=== PATIENT | female | born 1925 | race Caucasian/White ===

== ENCOUNTER 2017-06-19 12:42 | Emergency (ER) | payer MEDICARE, BC ==
--- NOTE | 2017-06-19 12:58 | EDM.PDOC ---
ED HPI GENERAL MEDICAL PROBLEM - General Chief Complaint: Neuro Symptoms/Deficits Stated Complaint: [facility] Time Seen by Provider: 06/19/17 12:44 Source of Information: Reports: Patient History Limitations: Reports: No Limitations - History of Present Illness INITIAL COMMENTS - FREE TEXT/NARRATIVE: 89-year-old female is brought in by [facility] for evaluation treatment following a responsive episode. Reportedly the patient was at a family members house outside. She became unresponsive. She had a pulse during the entire event and was breathing per a family member who is a nurse. This lasted approximately a few seconds to a few minutes. They brought her inside. She then explained that she had did go to the bathroom and got up on her wound volition went to the bathroom. She did have a loose diarrhea-like stool. She did not fall over at all during this episode. No head trauma. Shortly after this all occurred no known is called she is brought to the ER. Blood sugar on arrival was 130s. Patient is resting comfortably upon arrival the ED. She denies any headedness, dizziness, headache, nausea, vomiting , abdominal pain, chest pain or any shortness of breath. Patient denies any recent illness. She reports other than the one episode of looser stools prior to arrival she has not had any diarrhea. Patient reports she is only on medications for blood pressure but does not recall these. She is not on any blood thinners. Onset: Today - Related Data Allergies Allergy/AdvReac Type Severity Reaction Status Date / Time aspirin Allergy Itching Verified 06/19/17 16:16 Penicillins Allergy Itching Verified 06/19/17 16:16 Home Meds: Home Meds Lisinopril [Prinivil] 10 mg PO BID 02/13/16 [History] amLODIPine [Norvasc] 5 mg PO BEDTIME 02/13/16 [History] Hydrochlorothiazide 12.5 mg PO DAILY 06/19/17 [History] Metoprolol Succinate [Toprol Xl] 25 mg PO DAILY 06/19/17 [History] Pantoprazole Sodium 40 mg PO BID 06/19/17 [History] Past Medical History Cardiovascular History: Reports: Hypertension Other Cardiovascular History: chest pain Gastrointestinal History: Reports: Cholelithiasis Genitourinary History: Reports: Renal Disease Other Genitourinary History: chronic renal disease Musculoskeletal History: Reports: Osteoarthritis Other Hematologic History: hyponatremia - Past Surgical History GI Surgical History: Reports: Cholecystectomy Female Surgical History: Reports: Hysterectomy Social & Family History - Caffeine Use Caffeine Use: Reports: None ED ROS GENERAL - Review of Systems Review Of Systems: See Below HEENT: Denies: Vision Change Respiratory: Denies: Shortness of Breath Cardiovascular: Denies: Chest Pain GI/Abdominal: Denies: Abdominal Pain, Nausea, Vomiting : Reports: No Symptoms Neurological: Reports: Other (unresponsive episode). Denies: Headache, Numbness , Syncope, Tingling ED EXAM, NEURO - Physical Exam Exam: See Below Exam Limited By: No Limitations General Appearance: Alert, WD/WN, No Apparent Distress, Thin Eye Exam: Bilateral Eye: EOMI, Normal Inspection, PERRL Ears: Normal External Exam Nose: Normal Inspection Throat/Mouth: Normal Inspection, Normal Lips, Normal Voice, No Airway Compromise Head Exam: Atraumatic, Normocephalic Neck: Normal Inspection, Supple, Non-Tender, Full Range of Motion. 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 Right atrial hypertrophy. Early "R" wave transition - consider septal hypertrophy. Q wave AVL - non specific. QT is mildly prolonged for rate. Reviewed by myself and Dr. Daniel. Course - Vital Signs Last Recorded V/S: Last Vital Signs Temp 36.4 C 05/13/18 12:47 Pulse 66 06/19/17 16:10 Resp 18 06/19/17 16:10 BP 156/74 H 06/19/17 16:10 Pulse Ox 100 06/19/17 16:10 - Orders/Labs/Meds Orders: Active Orders 24 hr Category Date Time Status Cardiac Monitoring [RC] . DIRECTED Care 06/19/17 12:56 Active EKG 12 Lead [EKG Documentation Completion] [RC] STAT Care 06/19/17 12:56 Active Orthostatic Vital Signs [RC] ASDIRECTED Care 06/19/17 12:56 Active Peripheral IV Care [RC] . DIRECTED Care 06/19/17 12:57 Active Chest 1V Frontal [CR] Stat Exams 06/19/17 12:56 Taken UA W/MICROSCOPIC [URIN] Stat Lab 06/19/17 15:45 Ordered Peripheral IV Insertion Adult [OM.PC] Routine Oth 06/19/17 12:56 Ordered Labs: Laboratory Tests 06/19/17 06/19/17 06/19/17 Range/Units 12:51 12:51 12:51 WBC 5.44 (3.98-10.04) K/mm3 RBC 3.76 L (3.98-5.22) M/mm3 Hgb 11.0 L (11.2-15.7) gm/L Hct 33.4 L (34.1-44.9) % MCV 88.8 (79.4-94.8) fl MCH 29.3 (25.6-32.2) pg MCHC 32.9 (32.2-35.5) g/dl RDW Std Deviation 44.5 (36.4-46.3) fL Plt Count 238 (182-369) K/mm3 MPV 9.7 (9.4-12.3) fl Neut % (Auto) 58.7 (34.0-71.1) % Lymph % (Auto) 30.7 (19.3-51.7) % [place] % (Auto) 8.5 (4.7-12.5) % Eos % (Auto) 1.1 (0.7-5.8) Baso % (Auto) 0.6 (0.1-1.2) % Neut # (Auto) 3.20 (1.56-6.13) K/mm3 Lymph # (Auto) 1.67 (1.18-3.74) K/mm3 [place] # (Auto) 0.46 H (0.24-0.36) K/mm3 Eos # (Auto) 0.06 (0.04-0.36) K/mm3 Baso # (Auto) 0.03 (0.01-0.08) K/mm3 D-Dimer, Quantitative 0.61 H (0.19-0.50) mg/L Sodium 134 L (136-145) mEq/L Potassium 4.7 (3.5-5.1) mEq/L Chloride 101 (98-107) mEq/L Carbon Dioxide 22 (21-32) mEq/L Anion Gap 15.7 H (5-15) BUN 36 H (7-18) mg/dL Creatinine 1.8 H (0.55-1.02) mg/dL Est Cr Clr Drug Dosing TNP Estimated GFR (MDRD) 26 (>60) mL/min BUN/Creatinine Ratio 20.0 H (14-18) Glucose 160 H (83-115) mg/dL Calcium 8.5 (8.5-10.1) mg/dL Total Bilirubin 0.3 (0.2-1.0) mg/dL AST 20 (15-37) U/L ALT 22 (14-59) U/L Alkaline Phosphatase 52 (46-116) U/L Troponin I < 0.017 (0.00-0.056) ng/mL NT-Pro-B Natriuret Pep (0-450) pg/mL Total Protein 6.9 (6.4-8.2) g/dl Albumin 3.6 (3.4-5.0) g/dl Globulin 3.3 gm/dL Albumin/Globulin Ratio 1.1 (1-2) Urine Color (Yellow) Urine Appearance (Clear) Urine pH (5.0-8.0) Ur Specific [place] (1.005-1.030) Urine Protein (Negative) Urine Glucose (UA) (Negative) Urine Ketones (Negative) Urine Occult Blood (Negative) Urine Nitrite (Negative) Urine Bilirubin (Negative) Urine Urobilinogen (0.2-1.0) Ur Leukocyte Esterase (Negative) Urine RBC (0-5) /hpf Urine WBC (0-5) /hpf Ur Epithelial Cells (0-5) /hpf Urine Bacteria (FEW) /hpf Urine Mucus (FEW) /hpf 06/19/17 06/19/17 06/19/17 Range/Units 12:51 15:10 15:45 WBC (3.98-10.04) K/mm3 RBC (3.98-5.22) M/mm3 Hgb (11.2-15.7) gm/L Hct (34.1-44.9) % MCV (79.4-94.8) fl MCH (25.6-32.2) pg MCHC (32.2-35.5) g/dl RDW Std Deviation (36.4-46.3) fL Plt Count (182-369) K/mm3 MPV (9.4-12.3) fl Neut % (Auto) (34.0-71.1) % Lymph % (Auto) (19.3-51.7) % [place] % (Auto) (4.7-12.5) % Eos % (Auto) (0.7-5.8) Baso % (Auto) (0.1-1.2) % Neut # (Auto) (1.56-6.13) K/mm3 Lymph # (Auto) (1.18-3.74) K/mm3 [place] # (Auto) (0.24-0.36) K/mm3 Eos # (Auto) (0.04-0.36) K/mm3 Baso # (Auto) (0.01-0.08) K/mm3 D-Dimer, Quantitative (0.19-0.50) mg/L Sodium (136-145) mEq/L Potassium (3.5-5.1) mEq/L Chloride (98-107) mEq/L Carbon Dioxide (21-32) mEq/L Anion Gap (5-15) BUN (7-18) mg/dL Creatinine (0.55-1.02) mg/dL Est Cr Clr Drug Dosing Estimated GFR (MDRD) (>60) mL/min BUN/Creatinine Ratio (14-18) Glucose (83-115) mg/dL Calcium (8.5-10.1) mg/dL Total Bilirubin (0.2-1.0) mg/dL AST (15-37) U/L ALT (14-59) U/L Alkaline Phosphatase (46-116) U/L Troponin I < 0.017 (0.00-0.056) ng/mL NT-Pro-B Natriuret Pep 299 (0-450) pg/mL Total Protein (6.4-8.2) g/dl Albumin (3.4-5.0) g/dl Globulin gm/dL Albumin/Globulin Ratio (1-2) Urine Color Yellow (Yellow) Urine Appearance Clear (Clear) Urine pH 6.5 (5.0-8.0) Ur Specific [place] 1.015 (1.005-1.030) Urine Protein Trace H (Negative) Urine Glucose (UA) Negative (Negative) Urine Ketones Negative (Negative) Urine Occult Blood Negative (Negative) Urine Nitrite Negative (Negative) Urine Bilirubin Negative (Negative) Urine Urobilinogen 0.2 (0.2-1.0) Ur Leukocyte Esterase 2+ H (Negative) Urine RBC 0-5 (0-5) /hpf Urine WBC 30-40 H (0-5) /hpf Ur Epithelial Cells 5-10 H (0-5) /hpf Urine Bacteria Moderate H (FEW) /hpf Urine Mucus Not seen (FEW) /hpf Meds: Medications Discontinued Medications Generic Name Dose Route Start Last Admin Trade Name Freq PRN Reason Stop Dose Admin Sodium Chloride 250 mls @ 250 mls/hr 06/19/17 12:59 06/19/17 13:04 Normal Saline IV 06/19/17 13:58 250 mls/hr .BOLUS ONE Administration Sodium Chloride 250 mls @ 250 mls/hr 06/19/17 14:24 06/19/17 14:37 Normal Saline IV 06/19/17 15:23 250 mls/hr ONETIME ONE Administration Sodium Chloride 10 ml 06/19/17 12:56 06/19/17 13:05 Saline Flush FLUSH 10 ml ASDIRECTED PRN Administration Keep Vein Open - Radiology Interpretation Free Text/Narrative:: Chest: Portable view of the chest was obtained. Comparison: Prior chest x-ray of 03/17/16. Heart size and mediastinum are within normal limits for portable technique. Increased density is noted within both upper lungs compatible with degenerative spurring within the costochondral junction of the first ribs. Lungs show no acute parenchymal densities. Degenerative change is noted within the spine with scoliosis. Degenerative change is also noted within both shoulders. Bony structures are osteopenic. Impression: 1. Incidental findings. 2. Nothing acute is appreciated on portable chest x-ray. Head CT Technique: Multiple axial sections through the brain were obtained. Intravenous contrast was not utilized. Comparison: No prior intracranial imaging. Findings: Ventricles along with basal cisterns and sulci over the convexities are mildly prominent. Minimal diminished density is noted within the periventricular white matter compatible with small vessel ischemic demyelination change. No other abnormal parenchymal densities are seen. No evidence of intracranial hemorrhage. No midline shift or mass effect is seen. Bone window settings were reviewed which shows the visualized sinuses to appear clear. Mild atherosclerotic calcification is seen within the carotid siphon. No acute calvarial abnormality is seen. Impression: 1. Minimal senescent change as noted above. 2. No acute intracranial abnormality is identified. - Re-Assessments/Exams Free Text/Narrative Re-Assessment/Exam: 06/19/17 14:13 Patient's family has arrived. They informed me that she was sitting outside when she had this blank stare. Lasted only a few seconds. They then brought her inside and she would not respond to verbal prompting. This lasted what sounds to be a couple of minutes. [place] was called. She then came to acknowledge that there were several people around her (in reference to emergency response staff). She then explained that she had to go to the bathroom and got up on her own volition and walked to the bathroom or she had a diarrhea-like stool. Ambulance found her in the bathroom and then brought her into the ER. Daughter reports that this did occur on one other occasion. States at one [place] the mall and had a very similar episode. She was taken to the hospital and found to be slightly dehydrated. She was given some fluids and discharged home and did well. Patient continues to deny any pain or problems at this time. 06/19/17 15:14 The patient's d-dimer did come back elevated for lab standards at 0.61. However , patient is under her age corrected threshold at less than 0.89. The probability of a PE is felt to be low therefore, I decided against CT angiogram at this time. Patient continues to do well and is resting comfortably. Plans to repeat her troponin undetectable will send her home. I will have her stop her metoprolol as her heart rate has been in the 50s and 60s during her ER stay. Feels is likely a combination of mild dehydration and bradycardia causing her episode today. Awaiting urine sample at this time. 06/19/17 15:34 Urine is 2+ leukocytes but no nitrates. [place] unlikely to have a urinary tract infection. The patient is anxious to go home at this time. She would like to go home and spend Mother's Day with her family. No reason to keep her in the hospital and will discharge her home. Discharge instructions as documented. I will have the patient stop her metoprolol as her heart rate has been a 50s to 60s. I feel the today was a combination of mild dehydration and bradycardia causing the unresponsive episode. Departure - Departure Time of Disposition: 16:00 Disposition: Home, Self-Care 01 Condition: Good Clinical Impression: Dehydration, mild, Bradycardia - Discharge Information Instructions: Dehydration, Adult, [id number] Referrals: Andreas Veras MD [Primary Care Provider] - Forms: ED Department Discharge Additional Instructions: Stop the metoprolol. Make sure you're drinking plenty of fluids. Drink water, Gatorade or Powerade. Follow-up with your primary care provider in 1-2 weeks for a recheck of your symptoms. Please return to the ER if your symptoms change or worsen. - My Orders Last 24 Hours: My Active Orders 06/19/17 12:56 Cardiac Monitoring [RC] . DIRECTED EKG 12 Lead [EKG Documentation Completion] [RC] STAT Orthostatic Vital Signs [RC] ASDIRECTED Chest 1V Frontal [CR] Stat Peripheral IV Insertion Adult [OM.PC] Routine 06/19/17 12:57 Peripheral IV Care [RC] . DIRECTED 06/19/17 15:45 UA W/MICROSCOPIC [URIN] Stat - Assessment/Plan Last 24 Hours: My Active Orders 06/19/17 12:56 Cardiac Monitoring [RC] . DIRECTED EKG 12 Lead [EKG Documentation Completion] [RC] STAT Orthostatic Vital Signs [RC] ASDIRECTED Chest 1V Frontal [CR] Stat Peripheral IV Insertion Adult [OM.PC] Routine 06/19/17 12:57 Peripheral IV Care [RC] . DIRECTED 06/19/17 15:45 UA W/MICROSCOPIC [URIN] Stat
[2017-06-19] MEDS: Sodium Chloride 0.9% 10 ML Syringe FLUSH PRN ×2 (12:59→13:05)
[2017-06-19] MEDS ORDERED: Sodium Chloride 0.9% 250 ML IV ONE ×2 (12:59→14:24)
--- NOTE | 2017-06-19 13:02 | EDM.PDOC ---
ED HPI GENERAL MEDICAL PROBLEM - General Chief Complaint: Neuro Symptoms/Deficits Stated Complaint: [facility] Time Seen by Provider: 06/19/17 13:02 Source of Information: Reports: Patient History Limitations: Reports: No Limitations - Related Data Allergies Allergy/AdvReac Type Severity Reaction Status Date / Time aspirin Allergy Itching Verified 03/17/16 15:07 Penicillins Allergy Itching Verified 06/19/17 12:47 Home Meds: Home Meds Lisinopril [Prinivil] 10 mg PO DAILY 02/13/16 [History] amLODIPine [Norvasc] 5 mg PO BEDTIME 02/13/16 [History] Ranitidine [Zantac] 150 mg PO BID PRN 03/08/16 [History] Acetaminophen with Codeine [Tylenol with Codeine #3 Tablet] 1 each PO Q6H PRN # 15 tablet 03/09/16 [Rx] Past Medical History Cardiovascular History: Reports: Hypertension Other Cardiovascular History: chest pain Gastrointestinal History: Reports: Cholelithiasis Genitourinary History: Reports: Renal Disease Other Genitourinary History: chronic renal disease Musculoskeletal History: Reports: Osteoarthritis Other Hematologic History: hyponatremia - Past Surgical History GI Surgical History: Reports: Cholecystectomy Female Surgical History: Reports: Hysterectomy Social & Family History - Caffeine Use Caffeine Use: Reports: None Course - Vital Signs Last Recorded V/S: Last Vital Signs Temp 36.4 C 06/19/17 12:47 Pulse 64 06/19/17 12:47 Resp 18 06/19/17 12:47 BP 152/51 H 06/19/17 12:47 Pulse Ox 97 06/19/17 12:47 - Orders/Labs/Meds Orders: Active Orders 24 hr Category Date Time Status Cardiac Monitoring [RC] . DIRECTED Care 06/19/17 12:56 Active EKG 12 Lead [EKG Documentation Completion] [RC] STAT Care 06/19/17 12:56 Active Orthostatic Vital Signs [RC] ASDIRECTED Care 06/19/17 12:56 Active Peripheral IV Care [RC] . DIRECTED Care 06/19/17 12:57 Active Chest 1V Frontal [CR] Stat Exams 06/19/17 12:56 Ordered Head wo Cont [CT] Stat Exams 06/19/17 12:56 Ordered CBC WITH AUTO DIFF [HEME] Stat Lab 06/19/17 12:56 Ordered COMPREHENSIVE METABOLIC PN,CMP [CHEM] Stat Lab 06/19/17 12:56 Ordered D Dimer [D-DIMER QUANTITATIVE] [COAG] Stat Lab 06/19/17 12:58 Ordered PRO B-TYPE NATRIUR PEPT,BNPPRO [CHEM] Stat Lab 06/19/17 12:59 Ordered TROPONIN I [CHEM] Stat Lab 06/19/17 12:56 Ordered UA W/MICROSCOPIC [URIN] Stat Lab 06/19/17 12:56 Ordered Sodium Chloride 0.9% [Normal Saline] 250 ml Med 06/19/17 12:59 Ordered IV .BOLUS Sodium Chloride 0.9% [Saline Flush] Med 06/19/17 12:56 Ordered 10 ml FLUSH ASDIRECTED PRN Peripheral IV Insertion Adult [OM.PC] Routine Oth 06/19/17 12:56 Ordered Medication Orders Sodium Chloride (Normal Saline) 250 mls @ 250 mls/hr IV .BOLUS ONE Stop: 06/19/17 13:58 Sodium Chloride (Saline Flush) 10 ml FLUSH ASDIRECTED PRN PRN Reason: Keep Vein Open Last Admin: 06/19/17 12:59 Dose: 10 ml Meds: Medications Generic Name Dose Route Start Last Admin Trade Name Freq PRN Reason Stop Dose Admin Sodium Chloride 250 mls @ 250 mls/hr 06/19/17 12:59 Normal Saline IV 06/19/17 13:58 .BOLUS ONE Sodium Chloride 10 ml 06/19/17 12:56 06/19/17 12:59 Saline Flush FLUSH 10 ml ASDIRECTED PRN Administration Keep Vein Open Departure - Discharge Information Referrals: Andreas Veras MD [Primary Care Provider] - Forms: ED Department Discharge - My Orders Last 24 Hours: My Active Orders 06/19/17 12:56 Cardiac Monitoring [RC] . DIRECTED EKG 12 Lead [EKG Documentation Completion] [RC] STAT Orthostatic Vital Signs [RC] ASDIRECTED Chest 1V Frontal [CR] Stat Head wo Cont [CT] Stat CBC WITH AUTO DIFF [HEME] Stat COMPREHENSIVE METABOLIC PN,CMP [CHEM] Stat TROPONIN I [CHEM] Stat UA W/MICROSCOPIC [URIN] Stat Sodium Chloride 0.9% [Saline Flush] 10 ml FLUSH ASDIRECTED PRN Peripheral IV Insertion Adult [OM.PC] Routine 06/19/17 12:57 Peripheral IV Care [RC] . DIRECTED 06/19/17 12:58 D Dimer [D-DIMER QUANTITATIVE] [COAG] Stat 06/19/17 12:59 PRO B-TYPE NATRIUR PEPT,BNPPRO [CHEM] Stat Sodium Chloride 0.9% [Normal Saline] 250 ml IV .BOLUS - Assessment/Plan Last 24 Hours: My Active Orders 06/19/17 12:56 Cardiac Monitoring [RC] . DIRECTED EKG 12 Lead [EKG Documentation Completion] [RC] STAT Orthostatic Vital Signs [RC] ASDIRECTED Chest 1V Frontal [CR] Stat Head wo Cont [CT] Stat CBC WITH AUTO DIFF [HEME] Stat COMPREHENSIVE METABOLIC PN,CMP [CHEM] Stat TROPONIN I [CHEM] Stat UA W/MICROSCOPIC [URIN] Stat Sodium Chloride 0.9% [Saline Flush] 10 ml FLUSH ASDIRECTED PRN Peripheral IV Insertion Adult [OM.PC] Routine 06/19/17 12:57 Peripheral IV Care [RC] . DIRECTED 06/19/17 12:58 D Dimer [D-DIMER QUANTITATIVE] [COAG] Stat 06/19/17 12:59 PRO B-TYPE NATRIUR PEPT,BNPPRO [CHEM] Stat Sodium Chloride 0.9% [Normal Saline] 250 ml IV .BOLUS
--- NOTE | 2017-06-19 14:01 | CT ---
Head CT Technique: Multiple axial sections through the brain were obtained. Intravenous contrast was not utilized. Comparison: No prior intracranial imaging. Findings: Ventricles along with basal cisterns and sulci over the convexities are mildly prominent. Minimal diminished density is noted within the periventricular white matter compatible with small vessel ischemic demyelination change. No other abnormal parenchymal densities are seen. No evidence of intracranial hemorrhage. No midline shift or mass effect is seen. Bone window settings were reviewed which shows the visualized sinuses to appear clear. Mild atherosclerotic calcification is seen within the carotid siphon. No acute calvarial abnormality is seen. Impression: 1. Minimal senescent change as noted above. 2. No acute intracranial abnormality is identified. Diagnostic code #2
[2017-06-19 16:25] VITALS: BP 156/74
--- NOTE | 2017-06-20 07:03 | CR ---
Chest: Portable view of the chest was obtained. Comparison: Prior chest x-ray of 03/17/16. Heart size and mediastinum are within normal limits for portable technique. Increased density is noted within both upper lungs compatible with degenerative spurring within the costochondral junction of the first ribs. Lungs show no acute parenchymal densities. Degenerative change is noted within the spine with scoliosis. Degenerative change is also noted within both shoulders. Bony structures are osteopenic. Impression: 1. Incidental findings. 2. Nothing acute is appreciated on portable chest x-ray. Diagnostic code #2
== END 2017-06-19 16:10 | disposition home or self-care (01) ==
LOC: SUPCPDRO 12:42 → JD.ED 12:42
DX: E86.0 Dehydration (principal); R00.1 Bradycardia, unspecified; I12.9 Hypertensive chronic kidney disease with stage 1 through stage 4 chronic kidney disease, or unspecified chronic kidney disease; N18.9 Chronic kidney disease, unspecified; Z90.49 Acquired absence of other specified parts of digestive tract; Z88.0 Allergy status to penicillin; Z88.6 Allergy status to analgesic agent; Z79.899 Other long term (current) drug therapy
CPT/HCPCS: 36415; 70450; 71045; 80053; 81001; 83880; 84484; 85025; 85379; 93005; 96360; 96361; 99285; J7040; J7050; 93010; 99284